=== PATIENT | male | born 1990 | race Two or more races ===

== ENCOUNTER 2022-03-20 11:55 | Emergency (ER) | payer OTHER ==
[~2022-03-20] VITALS: Ht 170.2 cm; Wt 71.2 kg
[2022-03-20] MEDS ORDERED: ALTACE5 MG (12:01)
== END 2022-03-20 20:02 | disposition home or self-care (01) ==
LOC: ER 11:55
DX: R10.9 Unspecified abdominal pain (principal)

== ENCOUNTER 2022-07-03 08:03 | Outpatient (CLI) | payer OTHER ==
[~2022-07-03 08:03] MED LIST: ALTACE5 MG; METAXALONE800 MG PO
== END 2022-07-03 08:12 | disposition home or self-care (01) ==
LOC: RAD 08:03
PROVIDERS: ATTEND Physical Medicine & Rehabilitation
DX: M54.9 Dorsalgia, unspecified (principal)

== ENCOUNTER 2025-04-30 14:42 | Inpatient (IN) | payer OTHER ==
[~2025-04-30] VITALS: Ht 175.3 cm; Wt 70.3 kg
--- NOTE | 2025-04-30 14:52 | NUR ---
PTE MASCULINO DDE 35 YRS LLEGA EN AMBULANCIA POR VOMITOS Y HIPOTENCION SE LE KEE S/V Y SE ACOMODA EN CHRISTI.
[2025-04-30] MEDS ORDERED: 0.9 % SODIUM CHLORIDE 1,000 ML IV ONE (15:00)
[2025-04-30] MEDS ORDERED: ONDANSETRON HCL 2 MG/ML VIAL IV ONE (15:00)
--- NOTE | 2025-04-30 15:43 | NUR ---
SE EDUCA PACIENTE SOBRE EL [place] MEDICO Y ESTA REFIERE ENTENDER. PACIENTE CANALIZADO EN AMBULANCIA SE COLOCA IVFS Y SE ADMINISTRA MEDICAMENTOS GERARDO ORDEN MEDICA. PENDIENTE A PLACA Y CT SCAN. SE REALIZA EKG
[2025-04-30] MEDS ORDERED: PIPERACILLIN/TAZOBACTAM SODIUM 3.375 GM VIAL IV ONE (16:00)
[2025-04-30 16:09] LABS: BASO % 0.3 % (0.1-1.2); EOS # 0.03 (0.04-0.54); EOS % 0.2 % (0.7-7.0); LYMPH # 1.87 (1.18-3.74); LYMPH % 10.7 % (19.3-53.1); MEAN PLATELET VOLUME 9.80 fl (9.4-12.4); MONO # 1.40 (0.24-0.82); MONO % 8.0 % (4.7-12.5); NEUT # 14.00 (1.56-6.13); NEUT % 80.2 % (34.0-71.1); RED CELL DISTRIBUTION WIDTH 13.2 % (11.6-14.4)
[2025-04-30 16:16] LABS: COVID-19 AG NEGATIVE (NEGATIVE)
[2025-04-30 16:36] LABS: ALT/SGPT 38.0 U/L (12-78); AST/SGOT 23.0 U/L (15-37); BILIRUBIN TOTAL 0.4 mg/dL (0.3-1.2); BUN CREA RATIO 13.0 (7.0-25.0); CREATININE SERUM 1.04 mg/dL (0.70-1.30); GFR 81.27; GLOBULINA 4.0 G/DL (2.4-3.5); GLUCOSE FASTING 186.0 mg/dL (65-100); OSMOLALITY SERUM 287.0 MOSM/KG (275-295)
[2025-04-30 16:46] LABS: INR 1.09
[2025-04-30] MEDS ORDERED: OSELTAMIVIR PHOSPHATE 75 MG CAPSULE PO SCH ×2 (21:00→21:05)
[2025-04-30] MEDS ORDERED: CEFTRIAXONE SODIUM 1,000 MG VIAL IV SCH (21:06)
[2025-04-30] MEDS ORDERED: AZITHROMYCIN 500 MG VIAL IV SCH (21:06)
[2025-04-30] MEDS ORDERED: ENOXAPARIN SODIUM 40 MG/0.4 ML SYRINGE SUBCUTANEO SCH (21:08)
[2025-04-30] MEDS ORDERED: ATORVASTATIN CALCIUM 40 MG TABLET PO SCH (21:09)
[2025-04-30] MEDS ORDERED: CLOPIDOGREL BISULFATE 75 MG TABLET PO SCH (21:11)
[2025-04-30] MEDS ORDERED: ACETAMINOPHEN 325 MG TABLET PO PRN (21:15)
[2025-04-30] MEDS ORDERED: 0.9 % SODIUM CHLORIDE 1,000 ML IV SCH (21:15)
[2025-04-30] MEDS ORDERED: INSULIN LISPRO 1,000 UNIT/10 ML UNITS SUBCUTANEO PRN (21:15)
[2025-04-30] MEDS ORDERED: DEXTROSE 50 % IN WATER 0.5 G/ML DISP.SYRIN IV PRN (21:15)
[2025-04-30] MEDS ORDERED: POTASSIUM CHLORIDE 20MEQ/100ML H2O PB IV ONE (21:15)
[2025-05-01 01:53] LABS: CHOL HDL RATIO 2.9 (0-5.0); HDL 62 mg/dl (40-60); LDL 106 mg/dl (0-130); VLDL 9 (0-39)
[2025-05-01 01:56] LABS: CKMB < 1.0 NG/ML (0.5-3.6)
[2025-05-01 05:45] VITALS: BP 116/74
[2025-05-01 09:25] VITALS: BP 132/80
[2025-05-01 10:31] LABS: URINE APPEARANCE Clear; URINE BILIRRUBIN Negative (NEGATIVE); URINE BLOOD Negative; URINE COLOR Yellow; URINE GLUCOSE Negative (NEGATIVE); URINE LEUKOCYTE Negative; URINE NITRATE Negative; URINE PROTEIN Negative (NEGATIVE); URINE UROBILINOGEN 0.2 E.U./dl
[2025-05-01 10:34] LABS: URINE EPITHELIAL CELLS 3.2 uL (0.0-38.8); URINE RBC 3.6 uL (0.0-20.8); URINE WBC 3.2 uL (0.0-23.2)
[2025-05-01 10:52] LABS: URINE BACTERIA 3.5 uL (0.0-1933); URINE CAST 0.00 uL (0.0-1.40); URINE KETONE 40 (NEGATIVE)
[2025-05-01 16:48] VITALS: O2SAT 98
[2025-05-01 18:05] VITALS: BP 138/87; O2SAT 100
[2025-05-02 02:09] VITALS: BP 121/77; O2SAT 100
[2025-05-02 08:00] LABS: BASO % 0.5 % (0.1-1.2); EOS # 0.06 (0.04-0.54); EOS % 0.7 % (0.7-7.0); LYMPH # 2.50 (1.18-3.74); LYMPH % 29.4 % (19.3-53.1); MEAN PLATELET VOLUME 10.50 fl (9.4-12.4); MONO # 0.81 (0.24-0.82); MONO % 9.5 % (4.7-12.5); NEUT # 5.07 (1.56-6.13); NEUT % 59.5 % (34.0-71.1); RED CELL DISTRIBUTION WIDTH 13.2 % (11.6-14.4)
[2025-05-02 08:24] LABS: ALT/SGPT 29.0 U/L (12-78); AST/SGOT 18.0 U/L (15-37); BILIRUBIN TOTAL 0.81 mg/dL (0.3-1.2); BUN CREA RATIO 12.0 (7.0-25.0); CREATININE SERUM 0.82 mg/dL (0.70-1.30); GFR 106.92; GLOBULINA 3.5 G/DL (2.4-3.5); GLUCOSE FASTING 65.0 mg/dL (65-100); OSMOLALITY SERUM 282.0 MOSM/KG (275-295); T4 FREE 1.27 NG/ML (0.76-1.46)
[2025-05-02 08:49] VITALS: BP 143/90; O2SAT 98
[2025-05-02] MEDS ORDERED: ENALAPRIL MALEATE 2.5 MG TABLET PO SCH (17:00)
[2025-05-02 18:43] VITALS: BP 138/87; O2SAT 98
[2025-05-03 02:20] VITALS: BP 130/84; O2SAT 97
[2025-05-03 09:56] VITALS: BP 133/85; O2SAT 98
[2025-05-04 02:22] VITALS: BP 115/71; O2SAT 94
[2025-05-04 06:29] LABS: BASO % 0.6 % (0.1-1.2); EOS # 0.27 (0.04-0.54); EOS % 3.3 % (0.7-7.0); LYMPH # 2.43 (1.18-3.74); LYMPH % 29.7 % (19.3-53.1); MEAN PLATELET VOLUME 9.60 fl (9.4-12.4); MONO # 0.96 (0.24-0.82); MONO % 11.8 % (4.7-12.5); NEUT # 4.45 (1.56-6.13); NEUT % 54.5 % (34.0-71.1); RED CELL DISTRIBUTION WIDTH 12.4 % (11.6-14.4)
[2025-05-04 06:52] LABS: INR 1.03
[2025-05-04 06:59] LABS: ALT/SGPT 66.0 U/L (12-78); AST/SGOT 186.0 U/L (15-37); BILIRUBIN TOTAL 0.75 mg/dL (0.3-1.2); BUN CREA RATIO 17.0 (7.0-25.0); CREATININE SERUM 0.77 mg/dL (0.70-1.30); GFR 114.97; GLOBULINA 3.7 G/DL (2.4-3.5); GLUCOSE FASTING 86.0 mg/dL (65-100); OSMOLALITY SERUM 283.0 MOSM/KG (275-295)
[2025-05-04 09:11] VITALS: BP 126/83; O2SAT 97
[2025-05-04 13:12] LABS: HOMOCYSTEINE 10.0 umol/L (0.0-14.5)
[2025-05-04 17:59] VITALS: BP 138/85; O2SAT 100
[2025-05-05 01:00] VITALS: BP 108/71; O2SAT 97
[2025-05-05 08:52] VITALS: BP 124/77; O2SAT 96
[2025-05-05 15:08] LABS: ANTI-THROMBIN III 101 % (75-135); PROTEIN C ACTIVITY 109 % (73-180)
[2025-05-05 17:59] VITALS: BP 140/100; O2SAT 100
[2025-05-05 19:12] VITALS: BP 132/86
[2025-05-06 02:08] VITALS: BP 112/74; O2SAT 95
[2025-05-06 09:38] VITALS: BP 135/94; O2SAT 96
[2025-05-06 13:15] VITALS: O2SAT 98
[2025-05-06] MEDS ORDERED: fentaNYL CITRATE 50 MCG/ML AMPUL IV ONE (13:45)
[2025-05-06] MEDS ORDERED: MIDAZOLAM HCL 2 MG/2 ML VIAL IV ONE (13:45)
[2025-05-06 18:10] VITALS: BP 145/89; O2SAT 98
[2025-05-06] MEDS ORDERED: ENALAPRILAT DIHYDRATE 1.25 MG/ML VIAL IV PRN (18:30)
[2025-05-07 00:57] VITALS: BP 110/75; O2SAT 97
[2025-05-07 07:11] LABS: beta 2 gly iga < 9 (0-25); beta 2 gly igg < 9 (0-20); beta 2 gly igm < 9 (0-32)
[2025-05-07 08:00] VITALS: BP 130/79; O2SAT 96
[2025-05-07 18:12] VITALS: BP 138/100; O2SAT 97
[2025-05-07 22:52] VITALS: BP 130/84; O2SAT 98
[2025-05-08 00:49] VITALS: BP 115/74; O2SAT 96
[2025-05-08 08:14] VITALS: BP 106/67; O2SAT 98
[2025-05-08] MEDS ORDERED: APIXABAN 5 MG TABLET PO SCH (13:01)
[2025-05-08 15:22] VITALS: O2SAT 0
[2025-05-08 18:27] VITALS: BP 143/85; O2SAT 97
[2025-05-09 00:52] VITALS: BP 115/76; O2SAT 99
[2025-05-09 11:11] VITALS: BP 102/70; O2SAT 97
[2025-05-09 16:52] VITALS: BP 123/86; O2SAT 96
[2025-05-10 00:40] VITALS: BP 103/66; O2SAT 96
[2025-05-10 08:18] VITALS: BP 115/77
[2025-05-10 10:23] LABS: ALT/SGPT 172.0 U/L (12-78); AST/SGOT 80.0 U/L (15-37); BILIRUBIN TOTAL 0.65 mg/dL (0.3-1.2); BUN CREA RATIO 17.0 (7.0-25.0); CREATININE SERUM 0.86 mg/dL (0.70-1.30); GFR 101.2; GLOBULINA 3.8 G/DL (2.4-3.5); GLUCOSE FASTING 88.0 mg/dL (65-100); OSMOLALITY SERUM 281.0 MOSM/KG (275-295)
[2025-05-10 10:32] LABS: BASO % 1.1 % (0.1-1.2); EOS # 0.16 (0.04-0.54); EOS % 3.1 % (0.7-7.0); LYMPH # 1.63 (1.18-3.74); LYMPH % 31.1 % (19.3-53.1); MEAN PLATELET VOLUME 9.30 fl (9.4-12.4); MONO # 0.68 (0.24-0.82); NEUT # 2.70 (1.56-6.13); NEUT % 51.5 % (34.0-71.1); RED CELL DISTRIBUTION WIDTH 12.6 % (11.6-14.4)
[2025-05-10 10:34] LABS: MONO % 13.0 % (4.7-12.5)
[2025-05-10 16:42] VITALS: BP 127/85
[2025-05-11 00:58] VITALS: BP 105/70; O2SAT 97
[2025-05-11 08:17] VITALS: BP 106/72; O2SAT 96
[2025-05-11 17:51] VITALS: BP 116/83; O2SAT 0
[2025-05-12 00:30] VITALS: BP 103/68; O2SAT 98
[2025-05-12 08:35] VITALS: BP 102/69; O2SAT 96
[2025-05-12] MEDS ORDERED: ENALAPRIL MALE2.5 MG PO (12:11)
[2025-05-12] MEDS ORDERED: LIPITOR40 M1 PO (12:11)
[2025-05-12] MEDS ORDERED: ELIQUIS5 MG PO (12:11)
== END 2025-05-12 13:05 | disposition home or self-care (01) | DRG 64 ==
LOC: ER 14:42 → MEDJ 21:37
PROVIDERS: General Practice; Internal Medicine; Psychiatry & Neurology Clinical Neurophysiology; ADMIT Internal Medicine; ATTEND Internal Medicine
PROC: BW28ZZZ Computerized Tomography (CT Scan) of Head (ICD-10-PCS; principal; 2025-04-30)
PROC: B020YZZ Computerized Tomography (CT Scan) of Brain using Other Contrast (ICD-10-PCS; 2025-04-30)
PROC: BW2FYZZ Computerized Tomography (CT Scan) of Neck using Other Contrast (ICD-10-PCS; 2025-04-30)
PROC: B030YZZ Magnetic Resonance Imaging (MRI) of Brain using Other Contrast (ICD-10-PCS; 2025-04-30)
PROC: B24BYZZ Ultrasonography of Heart with Aorta using Other Contrast (ICD-10-PCS; 2025-04-30)
PROC: B345ZZZ Ultrasonography of Bilateral Common Carotid Arteries (ICD-10-PCS; 2025-04-30)
PROC: B54DZZZ Ultrasonography of Bilateral Lower Extremity Veins (ICD-10-PCS; 2025-05-01)
PROC: B54PZZZ Ultrasonography of Bilateral Upper Extremity Veins (ICD-10-PCS; 2025-05-01)
PROC: 4A12X4Z Monitoring of Cardiac Electrical Activity, External Approach (ICD-10-PCS; 2025-05-01)
PROC: B030ZZZ Magnetic Resonance Imaging (MRI) of Brain (ICD-10-PCS; 2025-05-03)
PROC: B030ZZZ Magnetic Resonance Imaging (MRI) of Brain (ICD-10-PCS; 2025-05-03)
PROC: B24BZZZ Ultrasonography of Heart with Aorta (ICD-10-PCS; 2025-05-03)
PROC: B24BZZ4 Ultrasonography of Heart with Aorta, Transesophageal (ICD-10-PCS; 2025-05-05)
PROC: B030ZZZ Magnetic Resonance Imaging (MRI) of Brain (ICD-10-PCS; 2025-05-06)
DX: I63.9 Cerebral infarction, unspecified (principal); I61.2 Nontraumatic intracerebral hemorrhage in hemisphere, unspecified; J10.1 Influenza due to other identified influenza virus with other respiratory manifestations
CPT/HCPCS: 70544; 70552